=== PATIENT | female | born 2000 | race Caucasian/White ===

== ENCOUNTER → 2020-08-30 | Outpatient (CLI) | payer BC, OTHER | LOC: HEART 5 15:21 | DX: J30.9 Allergic rhinitis, unspecified (principal); J45.50 Severe persistent asthma, uncomplicated | CPT/HCPCS: 94060; 95012 ==

== ENCOUNTER → 2021-06-14 | Outpatient (CLI) | payer BC | LOC: HEART 5 10:24 | DX: J45.40 Moderate persistent asthma, uncomplicated (principal) | CPT/HCPCS: 94060; 95012 ==